=== PATIENT | male | born 1990 | race Caucasian/White ===

== ENCOUNTER 2017-02-25 06:05 | Emergency (ER) | payer OTHER ==
[2017-02-25 06:11] VITALS: BP 148/98
[2017-02-25] MEDS ORDERED: KETOROLAC 60 MG/2 ML VIAL IM STA (06:14)
[2017-02-25] MEDS ORDERED: KETOROLAC 60 MG/2 ML VIAL ONE (06:21)
--- NOTE | 2017-02-25 06:31 | ED Physician Documentation ---
PD HPI MALE - Stated complaint Stated Complaint: LEFT SIDE PX - Chief complaint Chief Complaint: Abd Pain - History obtained from History obtained from: Patient, Family - History of Present Illness Timing - onset: Today Timing - details: Abrupt onset, Still present Associated symptoms: Back pain PD HPI MALE CONTRIB FACTORS: Sexually active Similar symptoms before: Has not had sx before Recently seen: Not recently seen - Additional information Additional information: Patient is a 26 year old male with no significant past medical history who is presenting to the emergency department for left sided flank pain that radiates down to his left groin. Patient states that it started this morning and he has never had symptoms like this before. Patient states that he had urinary hesitancy today. Patient denies any nausea, vomiting or penile discharge. Review of Systems Constitutional: denies: Fever, Chills Eyes: denies: Decreased vision, Photophobia Ears: denies: Ear pain, Drainage/discharge Nose: denies: Rhinorrhea / runny nose, Congestion Throat: denies: Oral lesions / sores, Sore throat Cardiac: denies: Chest pain / pressure, Palpitations Respiratory: denies: Cough, Wheezing GI: reports: Abdominal Pain. denies: Nausea, Vomiting : reports: Hesitancy, Unable to Void. denies: Testicular pain, Testicular mass Skin: denies: Rash, Lesions Musculoskeletal: reports: Back pain Neurologic: denies: Generalized weakness, Focal weakness, Numbness Immunocompromised: denies: Immunocompromised PD PAST MEDICAL HISTORY - Past Medical History Past Medical History: No - Past Surgical History Past Surgical History: No - Present Medications Home Medications: Ambulatory Orders Medication Instructions Recorded Confirmed Hydrocodone/Acetaminophen 1 - 2 each PO Q8HR PRN #10 tablet 02/25/17 [Hydrocodon-Acetaminophen 5-325] Ondansetron Odt [Zofran] 4 mg TL Q6H PRN #14 tablet 02/25/17 Tamsulosin [Flomax] 0.4 mg PO DAILY #10 capsule 02/25/17 - Allergies Allergies/Adverse Reactions: Allergies Allergy/AdvReac Type Severity Reaction Status Date / Time No Known Drug Allergies Allergy Verified 02/25/17 06:23 - Social History Does the pt smoke?: No Smoking Status: Never smoker Does the pt drink ETOH?: Yes Does the pt have substance abuse?: No - Immunizations Immunizations are current?: Yes PD ED PE NORMAL - Vitals Vital signs reviewed: Yes - General General: Alert and oriented X 3, Well developed/nourished - HEENT HEENT: Atraumatic, PERRL - Neck Neck: Supple, no meningeal sign - Cardiac Cardiac: RRR, No murmur - Respiratory Respiratory: No respiratory distress, Clear bilaterally - Abdomen Abdomen: Soft, Non tender, Non distended - Derm Derm: Normal color, Warm and dry, No rash - Extremities Extremities: No deformity, Normal ROM s pain, No edema PD ED PE EXPANDED - General General: Alert, In Pain - Male Male : Testes descended alba, Normal lie/cremastaric. No: Circumcised, Skin lesions, Discharge, Testicular Mass, Tenderness Results - Vitals Vitals: Vital Signs - 24 hr 02/25/17 06:10 Temperature 36.1 C L Heart Rate 79 Respiratory 18 Rate Blood Pressure 148/98 H O2 Saturation 99 Oxygen O2 Source Room air - Labs Labs: Laboratory Tests 02/25/17 06:51 Urine Color DARK YELLOW Urine Clarity HAZY Urine pH 6.0 Ur Specific [place] >=1.030 H Urine Protein 30 H Urine Glucose (UA) NEGATIVE Urine Ketones NEGATIVE Urine Occult Blood LARGE H Urine Nitrite NEGATIVE Urine Bilirubin NEGATIVE Urine Urobilinogen 0.2 (NORMAL) Ur Leukocyte Esterase NEGATIVE Urine RBC TNTC H Urine WBC 0-3 Ur Squamous Epith Cells NONE SEEN Urine Bacteria None Seen Ur Microscopic Review INDICATED Urine Culture Comments NOT INDICATED - Rads (name of study) ct abdomen/pelvis Radiology: Final report received (2mm mildly obstructing stone, multiple other non-obstructing stones) PD MEDICAL DECISION MAKING - ED course Complexity details: reviewed old records, reviewed results, re-evaluated patient , considered differential, d/w patient, d/w family ED course: Patient was seen and examined at bedside. Patient had the physical appearance of someone with a kidney stone. Imaging was ordered. patient was treated with toradol for pain. when patient returned from imaging urine was collected. Patient was found to have multiples stones but no urinary tract infection. patient required no further inpatient work up and was stable for discharge with outpatient follow up. Departure - Departure Disposition: Home, Self Care Clinical Impression: Nephrolithiasis Condition: Good Instructions: Kidney Stones Prevent Follow-Up: primary,care provider [Other] - Within 3 Days Prescriptions: Hydrocodone/Acetaminophen [Hydrocodon-Acetaminophen 5-325] 1 - 2 each PO Q8HR PRN #10 tablet PRN Reason: pain Ondansetron Odt [Zofran] 4 mg TL Q6H PRN #14 tablet PRN Reason: Nausea / Vomiting Tamsulosin [Flomax] 0.4 mg PO DAILY #10 capsule Comments: Your symptoms today are being caused by kidney stones. they are all less than 5mm so they should pass without intervention. you will need to increase your fluid intake and avoid soda. You should follow up with your base physician to schedule a follow up with a urologist if the stones become more frequent. You should take motrin or tylenol as needed for pain and percocet for breakthrough pain. You should return to the emergency department for fevers, chills, new worsening or uncontrollable symptoms. Forms: Activity restrictions Discharge Date/Time: 02/25/17 07:24
--- NOTE | 2017-02-25 06:41 | CT Preliminary Report ---
Exam: CT Abdomen/Pelvis W/O IMPRESSION: Mildly obstructing 2 x 2 mm mid left ureteral stone. Several small bilateral nonobstructing renal sto og. [facility] SITE ID: [id number]
--- NOTE | 2017-02-25 06:46 | CT Report ---
EXAM: CT ABDOMEN AND PELVIS (CT KUB) EXAM DATE: 02/25/2017 06:31 AM. CLINICAL HISTORY: Left flank pain with radiation to groin. COMPARISONS: None. TECHNIQUE: Routine axial helical CT imaging was performed through the abdomen and pelvis without IV c ontrast. Reconstructions: Coronal and sagittal. In accordance with CT protocol optimization, one or more of the following dose reduction techniques w ere utilized for this exam: automated exposure control, adjustment of mA and/or KV based on patient s ize, or use of iterative reconstructive technique. FINDINGS: Lung Bases: Unremarkable. Right Kidney/Ureter: Several small nonobstructing stones measuring up to 4 mm. No ureteral stones, hy dronephrosis, or hydroureter. Left Kidney/Ureter: Mildly obstructing 2 x 2 mm mid left ureteral stone. Several additional small non obstructing stones measuring up to 3 mm. Otherwise grossly unremarkable. Other Abdominal Organs: Noncontrast images of the abdominal organs are grossly unremarkable. Peritoneal Cavity: No free fluid, free air or sarah adenopathy. No excessive stool burden. Bowel is g rossly unremarkable. Pelvic Organs: No bladder stones or gross wall thickening. Noncontrast images of the visualized pelvi c organs are unremarkable. Vasculature: Unremarkable. Other: None. IMPRESSION: Mildly obstructing 2 x 2 mm mid left ureteral stone. Several small bilateral nonobstructing renal sto og. [facility] Referring Provider Line: [phone] SITE ID: [id number]
[2017-02-25 07:09] LABS: UA w/ MICROSCOPIC CHARGE YES
[2017-02-25 07:10] LABS: BILIRUBIN,URINE NEGATIVE (NEGATIVE); UR CULTURE IF IND NOT INDICATED; WBC,URINE 0-3 /HPF (0-3)
== END 2017-02-25 07:24 | disposition home or self-care (01) ==
LOC: ED 06:05
DX: N20.0 Calculus of kidney (principal)
CPT/HCPCS: 74176; 81001; 81003; 87086; 87491; 87591; 96372; 99283; 99284